=== PATIENT | female | born 1990 | race African-American/Black ===

== ENCOUNTER 2020-06-24 14:18 | Inpatient (IN) | payer OTHER, SELFPAY ==
[~2020-06-24] VITALS: Ht 170.2 cm; Wt 97.0 kg
[2020-06-24] MEDS ORDERED: diphenhydrAMINE 50MG/ML VIAL (J1200) As Ordered ONE (14:22)
[2020-06-24] MEDS ORDERED: HALOPERIDOL 5MG/ML VIAL (J1630 PER 1) As Ordered ONE (14:22)
[2020-06-24] MEDS ORDERED: LORazepam 2 MG/ML VIAL As Ordered ONE (14:23)
[2020-06-24] MEDS ORDERED: HALOPERIDOL 5MG/ML VIAL (J1630 PER 1) IM ONE (14:30)
[2020-06-24] MEDS ORDERED: diphenhydrAMINE 50MG/ML VIAL (J1200) IM ONE (14:30)
[2020-06-24] MEDS ORDERED: LORazepam 2 MG/ML VIAL IM ONE (14:30)
[2020-06-24] MEDS ORDERED: LORazepam 2 MG/ML VIAL IV STA (14:51)
[2020-06-24 14:56] LABS: BASO % 0.3 % (0.0-1.0); EOS # 0.1 10^3/uL (0.0-0.5); EOS % 0.8 % (0.0-3.0); HEMATOCRIT 39.2 % (36.0-47.0); HEMOGLOBIN 12.3 g/dl (12.0-15.5); LYMPH # 1.9 10^3/uL (1.5-5.0); LYMPH % 20.6 % (24.0-44.0); MEAN CORPUSCULAR HEMOGLOBIN 25.9 pg (27.0-33.0); MEAN CORPUSCULAR HGB CONC 31.4 g/dl (32.0-36.5); MEAN CORPUSCULAR VOLUME 82.7 fl (80.0-96.0); MONO # 0.8 10^3/uL (0.0-0.8); NEUTROPHILS # 6.2 10^3/uL (1.5-8.5); NEUTROPHILS % 69.1 % (36.0-66.0); PLATELET COUNT, AUTOMATED 288 10^3/uL (150-450); RED BLOOD COUNT 4.74 10^6/uL (4.00-5.40)
[2020-06-24 15:16] LABS: AMPHETAMINES LEVEL URINE NEGATIVE (NEGATIVE); BARBITURATES URINE NEGATIVE (NEGATIVE); BENZODIAZEPINES URINE NEGATIVE (NEGATIVE); CANNABINOIDS URINE POSITIVE (NEGATIVE); COCAINE METABOLITE URINE POSITIVE (NEGATIVE); METHADONE URINE NEGATIVE (NEGATIVE); OPIATES URINE NEGATIVE (NEGATIVE); PHENCYCLIDINE URINE NEGATIVE (NEGATIVE)
[2020-06-24 15:18] LABS: HCG, SERUM QUALITATIVE NEGATIVE (NEGATIVE)
[2020-06-24 15:33] LABS: ACETAMINOPHEN LEVEL < 2.0 UG/ML (10.0-30.0); ALBUMIN 4.3 GM/DL (3.2-5.2); ALT/SGPT 26 U/L (12-78); BILIRUBIN,DIRECT 0.1 MG/DL (0.0-0.2); BILIRUBIN,TOTAL 0.9 MG/DL (0.2-1.0); BLOOD UREA NITROGEN 14 MG/DL (7-18); CALCIUM LEVEL 9.1 MG/DL (8.5-10.1); CARBON DIOXIDE LEVEL 22 MEQ/L (21-32); CHLORIDE LEVEL 106 MEQ/L (98-107); CPK CREATINE PHOSPHOKINASE 491 U/L (26-192); CREATININE FOR GFR 1.33 MG/DL (0.55-1.30); ETHYL ALCOHOL (ETHANOL) < 0.003 % (0.000-0.010); GLOMERULAR FILTRATION RATE 49.9 (>60); GLUCOSE, FASTING 107 MG/DL (70-100); POTASSIUM SERUM 4.4 MEQ/L (3.5-5.1); SALICYLATE LEVEL < 1.7 MG/DL (5.0-30.0); SODIUM LEVEL 139 MEQ/L (136-145); TOTAL PROTEIN 8.6 GM/DL (6.4-8.2)
--- NOTE | 2020-06-24 15:49 | REP ---
INDICATION: psychosis - please wait until medicated COMPARISON: None. TECHNIQUE: Axial noncontrast images from the skull base to the vertex with coronal reformations. This CT examination was performed using the following dose reduction techniques: Automated exposure control, adjustment of mA and/or kv according to the patient's size, and use of iterative reconstruction technique. FINDINGS: The ventricles, sulci, and cisterns are normal in position and appearance. Darby-white differentiation is maintained. No acute intracranial hemorrhage, mass/mass effect, pathology or trauma/injury. No evidence for acute infarction. No extra-axial fluid collection. Calvarium is intact. Paranasal sinuses and mastoid air cells are clear. IMPRESSION: Normal noncontrast head CT. No evidence for acute intracranial pathology or trauma/injury. <Electronically signed by Mike Christian > 06/24/20 [id number]
[2020-06-24] MEDS ORDERED: NS 1,000 ML IV ONE (16:15)
--- NOTE | 2020-06-24 16:23 | ECGEPIP ---
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
[2020-06-25] MEDS ORDERED: LORazepam 1 MG TAB PO PRN (13:15)
[2020-06-25] MEDS: QUEtiapine FUMARATE 50 MG TAB PO SCH (14:06)
[2020-06-26] MEDS: QUEtiapine FUMARATE 50 MG TAB PO SCH (09:31)
[2020-06-26] MEDS ORDERED: MAALOX 30 ML SUSP *UDC PO PRN (16:30)
[2020-06-26] MEDS ORDERED: OLANZapine ORAL DISINTEGRATING TAB 5MG PO PRN (16:30)
[2020-06-26] MEDS ORDERED: MOM 30ML SUSPENSION UDC PO PRN (16:30)
[2020-06-26 17:54] VITALS: BP 150/70
[2020-06-27] MEDS: traZODone 50 MG TAB PO PRN ×2 (00:51→21:13)
[2020-06-27 06:33] VITALS: BP 144/70
[2020-06-27] MEDS: OLANZapine ORAL DISINTEGRATING TAB 5MG PO SCH ×2 (10:02→21:12)
--- NOTE | 2020-06-27 12:24 | HPEPDOC ---
[facility] Medical History & Physical Date of Admission Jun 27, 2020 Date of Service: Jun 27, 2020 History and Physical RN present during interview and exam CHIEF COMPLAINT: medical exam HISTORY OF PRESENT ILLNESS: 30 Female with marijuana and cocaine use brought in by police after being found with marijuana and cocaine, car was impounded,and due to combativeness, pt received ativan, haldol in the ER, and admitted to [facility] for bipolar disorder. Medical exam requested by psychiatrist. Pt denies fever, chills, weight gain/loss, anorexia, sore throat, ear pain, changes in vision, dplopia, blurred vision, n/v/d/abd pain, sob, chest pain, pressure, tightness, lightheadedness, palpitations, syncope, dysuria, urgency, frequency, flank pain, hematuria, diarrhea, constipation, b/l ue or le weakness, paresthesias. no COVID exposure. Patient said she felt her tongue swell up without stridor, respiratory distress, or wheezing after being given ativan, haldol in the ER. NO documented adverse reaction in ER notes, and no steroids given in the ER for angioedema. 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 REVIEW OF SYSTEMS: per HPI. negative aside from + findings on HPI HOME MEDICATIONS: Please see below. ALLERGY: Aspirin-Hives ?ATIVAN-tongue swelling per pt ?haldol-tongue swelling per pt PHYSICAL EXAMINATION: VITAL SIGNS:see below GEN: AAO x 3 HEENT: no stridor, LAD, or thyromegaly. normal tongue. LUNGS: CTAB no wheezing or rales HEART: S1S2 RRR ABD: + BS soft NT ND EXT: no edema LABORATORY DATA: See below. MICROBIOLOGY: Please see below. ASSESSMENT: 30 y/o female admitted for bipolar disorder into [facility],c/o tongue swelling after haldol ativan given in the ER but no documentation of adverse effect from medical records Bipolar disorder ?Angioedema s/p ativan/haldol Polysubstance abuse with marijuana and cocaine + urine tox screen PLAN: Psychiatrist to manage bipolar d/o. avoid haldol/ativan due to patient's observation of "swollen tongue," not substantiated by medical records from ER. will sign off. Pls reconsult for any new acute medical complaints. Vital Signs Vital Signs Date Time Temp Pulse Resp B/P (MAP) Pulse Ox O2 Delivery O2 Flow Rate FiO2 06/27/20 06:33 99.1 76 18 144/70 (94) 06/26/20 18:02 100 Room Air Laboratory Data Labs 24H Laboratory Tests 2 06/26/20 14:42: Coronavirus (COVID-19)(PCR) NEGATIVE Home Medications Unable to Obtain Active Prescriptions or Reported Meds Allergies Coded Allergies: aspirin (Verified Allergy, Intermediate, Hives, 06/26/20) A-FIB/CHADSVASC A-FIB History Current/History of A-Fib/PAF?: No Age/Risk Factor Scoring CHADSVASC: CHADSVASC Response (Comments) Value Age Risk Factor Age < 65 years old 0 Gender Risk Factor Female 1 Hx of CHF No 0 Hx of HTN No 0 Hx of Stroke/TIA/or VTE No 0 Hx of Diabetes No 0 Hx of Vascular Disease No 0 Total 1 Treatment Treatment ordered: NONE YAMILET CONKLIN MD Jun 27, 2020 12:12
[2020-06-27] MEDS ORDERED: hydrOXYzine 50 MG TAB PO PRN (15:00)
[2020-06-27] MEDS ORDERED: OLANZapine 5 MG TAB PO PRN (15:00)
[2020-06-27 16:13] VITALS: BP 118/81
--- NOTE | 2020-06-27 17:17 | MHHPEPDOC ---
General Date Of Admission: Jun 26, 2020 Legal Status: 9.39 Chief Complaint Patient is a 30 year old Single, Employed, Domiciled, Female who was brought to [facility] on a 9.41 after a public disturbance. History of Present Illness HISTORY OF THE PRESENT ILLNESS: Patient is a 30 -year-old Single, Employed, Domiciled , female, who was admitted to [facility] after making a public scene at a local gas station, refusing to allow customers into the store. She became aggressive and was taken to the police station, where they were just going to give her an appearance ticket but it appears that she needed to be further evaluated. According to the patient, she was here in [place] with her boyfriend (he lives on the [facility]), she was staying with her boyfriend's friend Willie but he went "camping." Due to her having a suspended license, she states she had Willie park her vehicle at a local gas station where she thought it was opened 24 hours a day. She went into the store two times, and the staff checked on her and told her that after 1 AM, they would be liable for her still sitting at the gas station. She reports that she had frequent visits by the police who was saying that she was "under investigation" She states that the police were taunting her. States that she had been spoken to, the day before for a traffic stop. Per collateral, patient has Bipolar Disorder, had a "mental breakdown" at age 19 when she was in college. Patient does not have a history of drug use and if she has a current history it is due the influence of her boyfriend. According to collateral, patient started seeing a [place] soldier with whom the family does not appear to find honorable. Psychiatric Review of Systems Depression (2 or more weeks): denies Joceline (4 or more days of): denies Psychosis: denies PTSD: denies Anxiety: denies Past Psychiatric History Previous Psychiatric Diagnosis: Bipolar, depressed, Anxiety Previous Psychiatric Admissions: Numerous admissions in [facility] Suicide Attempts: None Psychiatric Follow-up: Dr. Multani Psychiatric medications: Latuda and Abiliolive Maintena, states that she had negative effects of Maintena. Past Medical History Head Injury: No Seizures: No Hospitalizations: Yes Surgeries: No Family Medical/Psychiatric HX Medical Problems Parents both have DM II Mother also has hypertension, high cholesterol, and thyroid issues Psychiatric Disorders: No Addiction: No Suicide Attemps/Completions: No Addiction History alcohol, other (Patient is positive for Cocaine and Cannabis but denies any abuse of Drugs or Alcohol) Social History Childhood: Born to both parents who are still alive, 50 years. She is the youngest of 5 children has 3 brothers and one sister who are all well educated. 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 Marital: Single. no children Mental Status Examination General Appearance: disheveled, appears stated age, hospital scubs/clothing Build: average, tall Demeanor: mistrustful, guarded Eye Contact: average Activity: anxious Behavior: cooperative Speech: clear, normal volume, reg/rate,rhythm,volume (mildly tanential) Mood: irritable Affect: full, anxious Thought Process: logical/linear Thought Content (Other): appears paranoid (percutory) Perception (Hallucinations): none reported Perception (Other): none reported Cognition (Impairment of): none reported Cognition(Intelligence Est.): above average Oriented: Awake, Alert, Oriented times three Insight: fair, poor (at times) Judgment: Fair Diagnoses Bipolar I disorder, recurrent Cannabis Use Disorder Cocaine Use Disorder Stimulant Induced Psychotic Disorder A-FIB/CHADSVASC A-FIB History Current/History of A-Fib/PAF?: No Age/Risk Factor Scoring CHADSVASC: CHADSVASC Response (Comments) Value Age Risk Factor Age < 65 years old 0 Gender Risk Factor Female 1 Hx of CHF No 0 Hx of HTN No 0 Hx of Stroke/TIA/or VTE No 0 Hx of Diabetes No 0 Hx of Vascular Disease No 0 Total 1 Assessment Patient admitted to [facility] for possible exacerbation of Bipolar Symptoms. She states that the police were taunting her, she denies that she was blocking customers from entrance of the Gas Station At this time, patient is agreeable to Latuda to be reinstated. Hydroxyzine for Anxiety and Zyprexa for agitation. She is alert and oriented and not exhibiting any psychotic, manic, depressive or anxiety symptoms, she also denies SI/HI We will observe patient and determine when she is stable for discharge Initial Treatment Plan 1. Patient was admitted on a [9.39] status. 2. Complete history was obtained. 3. With patients permission, family will be contacted and database will be expanded. 4. Patients medication regimen will be reviewed and changed accordingly. 5. Patient will be provided with protected environment. 6. Patient will be treated with individual, group, and milieu therapies. 7. Patient will receive supportive psych-education. 8. Discharge planning will commence immediately. 9. Outpatient follow-up treatment will be strongly recommended. 10. The initial treatment plan will focus initially on: * Depression. * Risk for suicide. ESTIMATED LENGTH OF STAY: 2-5 DAYS. TIME SPENT COUNSELING AND COORDINATING INITIAL CARE: 40 minutes. Vital Signs Vital Signs Date Time Temp Pulse Resp B/P (MAP) Pulse Ox O2 Delivery O2 Flow Rate FiO2 06/27/20 16:13 98.2 73 18 118/81 (93) 06/26/20 18:02 100 Room Air Medications Unable to Obtain Active Prescriptions or Reported Meds Allergies Coded Allergies: aspirin (Verified Allergy, Intermediate, Hives, 06/26/20) lorazepam (Verified Adverse Reaction, Unknown, 06/27/20) per patient 06/25/20-ED Dr. Darby gave ativan that caused "tongue swelling", but nothing documented on ER notes. ZACHARIAH RIVERA NP Jun 27, 2020 17:06
[2020-06-27] MEDS: ACETAMINOPHEN TAB 650MG DOSE (2X325MG) PO PRN (21:14)
[2020-06-28 06:35] VITALS: BP 132/88
[2020-06-28] MEDS: LURASIDONE 20 MG TAB (LATUDA) PO SCH (09:23)
[2020-06-28] MEDS: OLANZapine ORAL DISINTEGRATING TAB 5MG PO SCH ×2 (09:23→21:02)
--- NOTE | 2020-06-28 14:44 | MHIPNPDOC ---
[facility] Progress Note Progress Note DATE OF SERVICE: 06/28/20 HISTORY: Patient is a 30 -year-old Single, Employed, Domiciled , female, who was admitted to [facility] after making a public scene at a local gas station, refusing to allow customers into the store. She became aggressive and was taken to the police station, where they were just going to give her an appearance ticket but it appears that she needed to be further evaluated. According to the patient, she was here in [place] with her boyfriend (he lives on the [facility]), she was staying with her boyfriend's friend Willie but he went "camping." Due to her having a suspended license, she states she had Willie park her vehicle at a local gas station where she thought it was opened 24 hours a day. She went into the store two times, and the staff checked on her and told her that after 1 AM, they would be liable for her still sitting at the gas station. She reports that she had frequent visits by the police who was saying that she was "under investigation" She states that the police were taunting her. States that she had been spoken to, the day before for a traffic stop. Per collateral, patient has Bipolar Disorder, had a "mental breakdown" at age 19 when she was in college. Patient does not have a history of drug use and if she has a current history it is due the influence of her boyfriend. According to collateral, patient started seeing a [place] soldier with whom the family does not appear to find honorable. VITAL SIGNS: See below. NEW TEST RESULTS: CURRENT MEDICATIONS: See below. MENTAL STATUS EXAMINATION: Patient is a 30 -year-old Single, Employed, Domiciled , female, who is admitted to [facility] on a 9.39 legal status. She is dressed in hospital scrubs, her grooming and hygiene is fair, makes good eye contact, normal psychomotor functions Speech: Is normal rate, tone and volume Language skills are intact Thought processes including: linear and goal oriented Thought content: denies depression, suicidal/homicidal ideation, planning or intent. He is not anxious, denies abnormal psychotic symptoms Abstract reasoning, and computation: Fair Description of associations: None notes, patient denies Description of abnormal or psychotic thoughts: None notes, patient denies Judgment: fair/good Insight: fair/good Orientation: alert and oriented to persona, place, time and situation Recent and remote memory: intact Attention span and concentration: good Language: expansive Fund of knowledge: good Mood: "I am fine Euthymic Affect: Reactive DIAGNOSES: Bipolar I disorder, recurrent Cannabis Use Disorder Cocaine Use Disorder Stimulant Induced Psychotic Disorder ASSESSMENT: Patient is alert and oriented, calm and cooperative. She is rapid in her speech but this is not observed as abnormal as she is from [facility] and her speech appears to be very similar to [facility] residents. She is pleasant in the interview. She is not observed and denies depression, anxiety, suicidal/homicidal ideation and is not labile, manic, paranoid, having hallucinations, delusions or making bizarre statements. She admits to recent cocaine use but reports that this has been since only May and prior to this has had no drug history. Her plan is to return to her boyfriend's home, but her brother will help with hotel x a few days. She is waiting for her boyfriend to have time off so that she can [facility]. Pending any unusual or unsafe plans, patient will be discharged tomorrow. MANAGEMENT PLAN: Discharge tomorrow. Continue Latuda and Hydroxyzine on discharge. TIME SPENT: 50 minutes. Vital Signs Vital Signs Date Time Temp Pulse Resp B/P (MAP) Pulse Ox O2 Delivery O2 Flow Rate FiO2 06/28/20 06:35 98.8 68 16 132/88 (103) 06/26/20 18:02 100 Room Air Current Medications Current Medications Medications (Trade) Dose Ordered Sig/Sophie Route PRN Reason Start Time Stop Time Status Last Admin Dose Admin Acetaminophen (Tylenol Tab) 650 mg Q6HP PRN PO HEADACHE or DISCOMFORT 06/26/20 16:30 06/27/20 21:14 Al Hydrox/Mg Hydrox/Simethicone (Mylanta) 30 ml Q4HP PRN PO HEARTBURN/INDIGESTION 06/26/20 16:30 Home Med (Med Rec Complete!) ASDIRECTED XX 06/25/20 00:00 06/25/20 00:01 DC Hydroxyzine HCl (Atarax) 50 mg Q6HP PRN PO Anxiety 06/27/20 15:00 Lorazepam (Ativan) 1 mg Q4HP PRN PO ANXIETY 06/25/20 13:15 06/27/20 08:32 DC 06/25/20 14:20 Lorazepam (Ativan) 2 mg STAT STAT IV 06/24/20 14:51 06/24/20 14:52 DC 06/24/20 14:56 Lurasidone HCl (Latuda) 20 mg DAILY@08 PO 06/28/20 08:00 06/28/20 09:23 Magnesium Hydroxide (Milk Of Magnesia) 30 ml DAILYPRN PRN PO CONSTIPATION 06/26/20 16:30 Olanzapine (ZyPREXA ZYDIS) 5 mg BID PO 06/27/20 09:00 06/28/20 09:23 Olanzapine (ZyPREXA ZYDIS) 5 mg Q4HP PRN PO ANXIETY/AGITATION 06/26/20 16:30 06/27/20 15:02 DC Olanzapine (ZyPREXA) 5 mg Q6HP PRN PO AGITATION 06/27/20 15:00 Quetiapine Fumarate (SEROquel) 50 mg DAILY PO 06/25/20 09:00 06/27/20 08:32 DC 06/26/20 09:31 Trazodone HCl (Desyrel) 50 mg QHSP PRN PO INSOMNIA 06/26/20 16:30 06/27/20 21:13 Allergies Coded Allergies: aspirin (Verified Allergy, Intermediate, Hives, 06/26/20) lorazepam (Verified Adverse Reaction, Unknown, 06/27/20) per patient 06/25/20-ED Dr. Darby gave ativan that caused "tongue swelling", but nothing documented on ER notes. ZACHARIAH RIVERA NP Jun 28, 2020 14:44
[2020-06-28] MEDS: ACETAMINOPHEN TAB 650MG DOSE (2X325MG) PO PRN (14:53)
[2020-06-28 16:23] VITALS: BP 143/69
[2020-06-28] MEDS: traZODone 50 MG TAB PO PRN (22:52)
[2020-06-29] MEDS: LURASIDONE 20 MG TAB (LATUDA) PO SCH (08:42)
[2020-06-29] MEDS: OLANZapine ORAL DISINTEGRATING TAB 5MG PO SCH (08:42)
[2020-06-29] MEDS ORDERED: LATU20TA PO (09:35)
[2020-06-29] MEDS ORDERED: HYDR50TA70 PO (09:35)
[2020-06-29] MEDS ORDERED: TRAZ-252 PO (09:35)
--- NOTE | 2020-06-29 12:01 | MHDSPDOC ---
[facility] Discharge Summary Discharge Summary DATE OF ADMISSION: Jun 26, 2020 at 16:36 DATE OF DISCHARGE: June 29, 2020 11:30 DISCHARGE DIAGNOSES: DIAGNOSES: 1. Bipolar I disorder, recurrent 2. Cannabis Use Disorder 3. Cocaine Use Disorder 4. Stimulant Induced Psychotic Disorder REASON FOR ADMISSION: Patient is a 30 -year-old Single, Employed, Domiciled , female, who was admitted to [facility] after making a public scene a t a local gas station, refusing to allow customers into the store. She became aggressive and was taken to the police station, where they were just going to give her an appearance ticket but it appears that she needed to be further evaluated. According to the patient, she was here in [place] with her boyfriend (he lives on the [facility]), she was staying with her boyfriend's friend Willie but he went "camping." Due to her having a suspended license, she states she had Willie park her vehicle at a local gas station where she thought it was opened 24 hours a day. She went into the store two times, and the staff checked on her and told her that after 1 AM, they would be liable for her still sitting at the gas station. She reports that she had frequent visits by the police who was saying that she was "under investigation" She states that the police were taunting her. States that she had been spoken to, the day before for a traffic stop. Per collateral, patient has Bipolar Disorder, had a "mental breakdown" at age 19 when she was in college. Patient does not have a history of drug use and if she has a current history it is due the influence of her boyfriend. According to collateral, patient started seeing a [place] soldier with whom the family does not appear to find honorable. 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 Due to COVID, she is working from home. She reported that she was working from her car when the police took her out of the car. CONSULTANTS INVOLVED: See Medical H + P by Medical Provider TIME SPENT: 25 minutes. TREATMENT AND PROGRESS ON THE UNIT : Patient was admitted to the [facility] on a 9.39 legal status he was afforded the following treatment modalities: 1) Individual Therapy 2) Group Therapy 3) Medication Management 4) Milieu Therapy 5) Safe Environment HOSPITAL COURSE: Patient was admitted to [facility] on a 9.39 legal status. On initial interview, patient reports a series of events that included herself and the police. According to the patient, she had two separate encounters with the police. The encounter in which they brought her to the hospital is an incident where the officers reported that she was preventing customers from entering a gas station store. Patient denies that this occurred. She reports that she was racially profiled and reports that she has had several incidences in which the [place] Police have stopped her in a routine traffic stop. I cannot confirm or deny her accounting of the incidents. In her interview, patient was not observed as depressed, manic, paranoid, disorganized, scattered, with flight of ideas, suicidal/homicidal ideation, planning or intent. She was not ruminative, obsessive, bizarre or delusional. Patient reports that she has had several psychiatric admissions in [facility] and has been diagnosed Bipolar. She reported to me that she does not agree with diagnosis, and feels that she has Anxiety. She is a patient of Dr. Suresh Multani in [facility] and she states that she had been on Seroquel, Latuda and Abilify Maintena (she reports weight gain with Seroquel and Abilify) She was willing to restart Latuda on this occasion. Throughout this admission patient was not observed manic, hypomanic or delusional. I would note that today, she had more rapid and pressured speech than in previous encounters with the patient. She was observed with numerous pieces of papers, in which she is writing important addresses and phone numbers. But other than this change, she continues to have a normal mental status. Patient states that her boyfriend Vitaly is coming to pick her up, at this writing Vitaly who is Active Duty has not returned the call to business planner. Excavator Backhoe Operator has confirmed that patient's brother will pay for one hotel stay at the [facility]. I have encouraged the patient to consider calling her family to get help to return home to [facility]. Patient states that she does not want to discuss returning home at this time, and doesn't want to involve her family. DISCHARGE ASSESSMENT: The patient is being discharged today as she does not meet criteria for involuntary admission due to normal mental status exam, she has fair insight into her situation. She is engaged in the discharge process and is friendly, amenable in behavioral control and has not been observed with concerning behaviors or abnormal psychotic symptoms. She is declining a voluntary admission and must be discharged at this time in good kylee, as I am unable to make a case for holding the patient against her will. MENTAL STATUS EXAMINATION ON DISCHARGE: Patient is a 30 -year-old Single, Employed, Domiciled , female, who is admitted to [facility] on a 9.39 legal status. She is dressed in hospital scrubs, her grooming and hygiene is fair, makes good eye contact, normal psychomotor functions Speech: Is normal rate, tone and volume Language skills are intact Thought processes including: linear and goal oriented Thought content: denies depression, suicidal/homicidal ideation, planning or intent. He is not anxious, denies abnormal psychotic symptoms Abstract reasoning, and computation: Fair Description of associations: None notes, patient denies Description of abnormal or psychotic thoughts: None notes, patient denies Judgment: fair/good Insight: fair/good Orientation: alert and oriented to persona, place, time and situation Recent and remote memory: intact Attention span and concentration: good Language: expansive Fund of knowledge: good Mood: "I am fine Euthymic Affect: Reactive MEDICATIONS ON DISCHARGE: Latuda 20 mg daily Hydroxyzine 50 mg BID PRN anxiety Trazodone 50 mg HS PRN insomnia PLAN/FOLLOWUP ARRANGEMENTS: Patient is being discharged today and states she is staying at the [facility]. She reported to me today that she plans on returning to [facility] by Friday. The amount of time spent in the coordination of care for this patient was approximately 20 minutes. Vital Signs/I&Os Vital Signs Date Time Temp Pulse Resp B/P (MAP) Pulse Ox O2 Delivery O2 Flow Rate FiO2 06/29/20 06:56 99.0 66 16 100 Room Air 06/28/20 16:23 143/69 (93) Medications Scheduled Lurasidone Hydrochloride (Latuda) 20 Mg Tablet, 20 MG PO DAILY@08 for Mood Stabilization, #7 Scheduled PRN Hydroxyzine HCl (Hydroxyzine HCl) 50 Mg Tablet, 50 MG PO BIDP PRN for Anxiety, #14 Trazodone HCl (Trazodone HCl) 50 Mg Tablet, 50 MG PO QHSP PRN for INSOMNIA, #7 Allergies Coded Allergies: aspirin (Verified Allergy, Intermediate, Hives, 06/26/20) lorazepam (Verified Adverse Reaction, Unknown, 06/27/20) per patient 06/25/20-ED Dr. Darby gave ativan that caused "tongue swelling", but nothing documented on ER notes. ZACHARIAH RIVERA NP Jun 29, 2020 12:01
[2020-06-29] MEDS: ACETAMINOPHEN TAB 650MG DOSE (2X325MG) PO PRN (12:54)
== END 2020-06-29 13:25 | disposition home or self-care (01) | DRG 885 ==
LOC: M ED 14:18 → M ED INP 06-26 16:36 → M PSY 06-26 18:06
PROVIDERS: ADMIT Psychiatry & Neurology Psychiatry; ATTEND Psychiatry & Neurology Psychiatry
DX: F31.9 Bipolar disorder, unspecified (principal); F12.90 Cannabis use, unspecified, uncomplicated; F14.90 Cocaine use, unspecified, uncomplicated; F15.90 Other stimulant use, unspecified, uncomplicated; Z88.6 Allergy status to analgesic agent; Z88.8 Allergy status to other drugs, medicaments and biological substances